=== PATIENT | female | born 1935 | race Caucasian/White ===

== ENCOUNTER 2017-01-17 17:16 | Inpatient (IN) | payer MEDICARE ==
[~2017-01-17] VITALS: Ht 142.2 cm; Wt 33.4 kg
[2017-01-17 19:26] LABS: Basophils # (auto) 0 uL; Basophils % (auto) 0.4 % (0.0-2.0); Eosinophils # (auto) 0.1 uL; Eosinophils % (auto) 2.6 % (0.0-7.0); Hematocrit 37.9 % (36.0-46.0); Hemoglobin 12.3 g/dL (12.2-16.2); Lymphocytes % (auto) 17.8 % (10.0-50.0); Mean Corpuscular Hemoglobin 29.5 pg (28.0-32.0); Mean Corpuscular Hgb Conc. 32.5 g/dL (32.0-36.0); Mean Corpuscular Volume 90.8 fL (80.0-100.0); Mean Platelet Volume 9.2 fL (7.4-10.4); Monocytes # (auto) 0.6 uL; Monocytes % (auto) 10.5 % (0.0-12.0); Neutrophils # (auto) 3.7 uL; Neutrophils % (auto) 68.7 % (37.0-80.0); Platelet Count (auto) 163 10^3/uL (140-450); White Blood Cell 5.4 10^3/uL (4.4-10.8)
[2017-01-17 19:54] LABS: Albumin 3.1 g/dL (3.4-5.0); BUN/Creatinine Ratio 18.6; Bilirubin, Total 0.5 mg/dL (0.2-1.0); Calcium 8.2 mg/dL (8.5-10.1); Magnesium 2.5 mg/dL (1.6-2.6); Total Protein 6.2 g/dL (6.4-8.2)
[2017-01-17 19:59] LABS: B-Type Natriuretic Peptide 2641.17 pg/mL (0-100); Temperature: 23.7 C (20.0-25.0)
[2017-01-17] MEDS ORDERED: IPRATROPIUM BROM 0.5 MG/2.5ML INH SOL NEB ONE (20:00)
[2017-01-17] MEDS ORDERED: ALBUTEROL SULF 2.5 MG/0.5ML(0.5%) NEB SOLN NEB ONE (20:00)
[2017-01-17] MEDS ORDERED: methylPREDNISolone SOD SUCC 125 MG/2 ML VL IV ONE (20:00)
[2017-01-17] MEDS ORDERED: FUROSEMIDE 40 MG/4 ML VIAL IV ONE (20:00)
[2017-01-17] MEDS ORDERED: cefTRIAXone 1GM/50ML D5W 50 ML IV ONE (20:15)
[2017-01-17] MEDS ORDERED: ASPirin 81 mg TAB PO ONE (22:15)
[2017-01-17] MEDS ORDERED: ONDANSETRON HCL 4 MG/2 ML VIAL IV PRN (22:15)
[2017-01-17] MEDS ORDERED: TEMAZEPAM 15 MG CAP PO PRN (22:15)
[2017-01-17] MEDS ORDERED: ACETAMINOPHEN 325 MG TAB PO PRN (22:15)
[2017-01-17] MEDS ORDERED: MORPHINE SULF INJ 2 MG/ML SYRINGE 1ML IV PRN (22:15)
[2017-01-17] MEDS ORDERED: NITROGLYCERIN 0.4 MG SL TAB SL PRN (22:15)
[2017-01-17] MEDS ORDERED: HYDROcodone-ACET 5/325MG TAB PO PRN (22:15)
[2017-01-17] MEDS ORDERED: ALBUTEROL SULF 2.5 MG/0.5ML(0.5%) NEB SOLN NEB PRN (22:15)
[2017-01-17] MEDS ORDERED: ENALAPRIL MALEATE 2.5 MG TAB PO ONE (22:15)
[2017-01-17 22:38] LABS: Cholesterol 93 mg/dL (< 200); HDL Cholesterol 34 mg/dL (40-59); LDL Cholesterol 52 mg/dL (< 100); Triglycerides 80 mg/dL (< 150)
[2017-01-17 22:55] VITALS: BP 143/80
[2017-01-18 05:00] VITALS: BP 135/61
[2017-01-18 06:00] LABS: Basophils # (auto) 0 uL; Basophils % (auto) 0.5 % (0.0-2.0); Eosinophils # (auto) 0 uL; Eosinophils % (auto) 0.1 % (0.0-7.0); Hematocrit 40.9 % (36.0-46.0); Hemoglobin 13.4 g/dL (12.2-16.2); Lymphocytes # (auto) 0.2 uL; Lymphocytes % (auto) 6.6 % (10.0-50.0); Mean Corpuscular Hemoglobin 29.5 pg (28.0-32.0); Mean Corpuscular Hgb Conc. 32.7 g/dL (32.0-36.0); Mean Corpuscular Volume 90.1 fL (80.0-100.0); Monocytes # (auto) 0 uL; Monocytes % (auto) 1.5 % (0.0-12.0); Neutrophils # (auto) 2.9 uL; Neutrophils % (auto) 91.3 % (37.0-80.0); Platelet Count (auto) 165 10^3/uL (140-450); Red Cell Distribution Width 15.1 % (11.6-16.0); SUSPECT VIEW TRANSMISSION; White Blood Cell 3.1 10^3/uL (4.4-10.8)
[2017-01-18] MEDS ORDERED: FUROSEMIDE 20 MG TAB PO SCH (06:00)
[2017-01-18 06:14] LABS: Albumin 2.9 g/dL (3.4-5.0); BUN/Creatinine Ratio 18.1; Calcium 8.5 mg/dL (8.5-10.1); Potassium 3.6 mmol/L (3.5-5.1)
[2017-01-18 06:26] LABS: Bilirubin, Total 0.6 mg/dL (0.2-1.0); Total Protein 6.3 g/dL (6.4-8.2)
[2017-01-18 08:00] VITALS: BP 149/57
[2017-01-18 09:00] VITALS: BP 149/57
[2017-01-18] MEDS ORDERED: ENOXAPARIN SOD 40 MG/0.4 ML SYRINGE SC SCH (10:00)
[2017-01-18] MEDS ORDERED: ENALAPRIL MALEATE 2.5 MG TAB PO SCH (10:00)
[2017-01-18] MEDS: ASPirin 81 mg TAB PO SCH (10:07)
[2017-01-18] MEDS: CARVEDILOL 3.125 MG TAB PO SCH ×2 (10:08→21:28)
[2017-01-18] MEDS: FAMOTIDINE 20 MG TAB PO SCH ×2 (10:08→21:28)
[2017-01-18] MEDS: ENOXAPARIN SOD 30 MG/0.3 ML SYRINGE SC SCH (10:09)
[2017-01-18 13:00] VITALS: BP 111/61
[2017-01-18 17:00] VITALS: BP 149/77
[2017-01-18] MEDS: FUROSEMIDE 40 MG/4 ML VIAL IV SCH (17:58)
[2017-01-18] MEDS ORDERED: FUROSEMIDE 20 MG/2 ML VIAL IV SCH (18:00)
[2017-01-18] MEDS: POTASSIUM CHL 20 Meq TABLET PO SCH (21:25)
[2017-01-18] MEDS: ENALAPRIL MALEATE 2.5 MG TAB PO SCH (21:29)
[2017-01-18 22:00] VITALS: BP 117/60
[2017-01-19] VITALS (7 sets, daily range): BP systolic 102–140; BP diastolic 42–75
[2017-01-19] MEDS: FUROSEMIDE 40 MG/4 ML VIAL IV SCH ×2 (05:57→18:00)
[2017-01-19 06:59] LABS: Calcium 8.5 mg/dL (8.5-10.1); Potassium 4.3 mmol/L (3.5-5.1)
[2017-01-19 07:02] LABS: BUN/Creatinine Ratio 27.7
[2017-01-19 07:16] LABS: B-Type Natriuretic Peptide 999.65 pg/mL (0-100); Temperature: 23.3 C (20.0-25.0)
[2017-01-19] MEDS: POTASSIUM CHL 20 Meq TABLET PO SCH ×2 (10:00→21:32)
[2017-01-19] MEDS: ENALAPRIL MALEATE 2.5 MG TAB PO SCH ×2 (11:01→21:37)
[2017-01-19] MEDS: ENOXAPARIN SOD 30 MG/0.3 ML SYRINGE SC SCH (11:02)
[2017-01-19] MEDS: CARVEDILOL 3.125 MG TAB PO SCH ×2 (11:05→21:38)
[2017-01-19] MEDS: ASPirin 81 mg TAB PO SCH (11:08)
[2017-01-19] MEDS: FAMOTIDINE 20 MG TAB PO SCH ×2 (11:25→21:32)
[2017-01-19] MEDS ORDERED: CARVEDILOL 3.125 MG TAB PO ONE (13:45)
[2017-01-20 05:16] VITALS: BP 112/51
[2017-01-20] MEDS: FUROSEMIDE 40 MG/4 ML VIAL IV SCH (05:23)
[2017-01-20 08:18] LABS: BUN/Creatinine Ratio 43.4; Calcium 8.9 mg/dL (8.5-10.1)
[2017-01-20 08:37] LABS: Temperature: 23.1 C (20.0-25.0)
[2017-01-20 08:47] VITALS: BP 131/69
[2017-01-20] MEDS: CARVEDILOL 3.125 MG TAB PO SCH (10:00)
[2017-01-20] MEDS: POTASSIUM CHL 20 Meq TABLET PO SCH (10:04)
[2017-01-20] MEDS: ASPirin 81 mg TAB PO SCH (10:04)
[2017-01-20] MEDS: ENALAPRIL MALEATE 2.5 MG TAB PO SCH (10:04)
[2017-01-20] MEDS: ENOXAPARIN SOD 30 MG/0.3 ML SYRINGE SC SCH (10:04)
[2017-01-20] MEDS: FAMOTIDINE 20 MG TAB PO SCH (10:04)
[2017-01-20 12:07] VITALS: BP 131/69
== END 2017-01-20 15:40 | disposition home health service (06) | DRG 292 ==
LOC: EDBD 17:16 → ER 17:16 → TELE 17:17 → TELE-WESTW 22:26
PROVIDERS: ADMIT Internal Medicine; ATTEND Internal Medicine Pulmonary Disease
DX: I50.43 Acute on chronic combined systolic (congestive) and diastolic (congestive) heart failure (principal); E44.0 Moderate protein-calorie malnutrition; R64 Cachexia; Z68.1 Body mass index [BMI] 19.9 or less, adult; F17.210 Nicotine dependence, cigarettes, uncomplicated; H91.93 Unspecified hearing loss, bilateral; R06.00 Dyspnea, unspecified; R54 Age-related physical debility
CPT/HCPCS: 36415; 71010; 80048; 80053; 80061; 83605; 83735; 83880; 84484; 85025; 87040; 93005; 93306; 94640; 94761; 96365; 96375; J0696